=== PATIENT | female | born 1995 | race Caucasian/White ===

== ENCOUNTER 2018-09-04 03:27 | Emergency (ER) | payer BC ==
[2018-09-04 03:35] VITALS: BMI 27.4
[2018-09-04] MEDS ORDERED: PROZAC20 MG PO (03:36)
[2018-09-04] MEDS ORDERED: VISTARIL25 MG PO (03:37)
[2018-09-04 04:22] LABS: APPEARANCE HAZY (CLEAR); BASOPHILS 0.6 % (0-2); BILIRUBIN NEGATIVE (NEGATIVE); COLOR YELLOW (YELLOW); EOSINOPHILS 4.1 % (0-7); GLUCOSE NEGATIVE (NEGATIVE); HCG SERUM NEGATIVE (NEGATIVE); HEMATOCRIT 39.9 % (36.0-48.0); HEMOGLOBIN 13.4 g/dL (12-16); IMMATURE GRANULOCYTES 0.3 % (0-5); KETONE NEGATIVE (NEGATIVE); LYMPHOCYTES 53.6 % (15-50); MCH 30.1 pg (26.0-34.0); MCHC 33.6 g/dL (31.0-37.0); MCV 89.7 fL (80.0-100.0); MEAN PLATELET VOLUME 10.7 fL (7.4-10.4); NEUTROPHILS 34.4 % (40-80); NITRITE NEGATIVE (NEGATIVE); PLATELET COUNT 287 10x3/uL (130-400); PROTEIN NEGATIVE (NEGATIVE); RBC 4.45 10x6/uL (4.00-5.40); RDW 12.4 % (11.5-14.5); UROBILINOGEN NORMAL (NORMAL); WBC 9.4 10x3/uL (4.8-10.8)
[2018-09-04 04:23] LABS: ALKALINE PHOSPHATASE 59 U/L (46-116); ALT (SGPT) 27 U/L (10-68); BILIRUBIN - TOTAL 0.24 mg/dL (0.2-1.3); CALC OSMOLALITY 285 mosm/kg (275-300); CALCIUM 9.2 mg/dL (8.5-10.1); CARBON DIOXIDE 25.2 mmol/L (21.0-32.0); CHLORIDE - SERUM 106 mmol/L (98-107); CREATININE - SERUM 0.8 mg/dL (0.6-1.3); GLUCOSE 103 mg/dL (74-106); POTASSIUM - SERUM 3.9 mmol/L (3.5-5.1); PROTEIN - SERUM 7.5 g/dL (6.4-8.2); SODIUM 143 mmol/L (136-145); UREA NITROGEN 16 mg/dL (7-18); eGFR NON AFRICAN AMERICAN > 90 mL/min (90-120)
[2018-09-04 04:25] LABS: BACTERIA MODERATE /hpf (NONE SEEN); EPITHELIAL CELLS 0-5 /hpf (0-5); RED CELLS - URINE 0-5 /hpf (0-5); WHITE CELLS - URINE 0-5 /hpf (0-5)
[2018-09-04] MEDS ORDERED: TORADOL10 MG PO (06:26)
[2018-09-04] MEDS ORDERED: FLOMAX0.4 MG PO (06:26)
[2018-09-04 06:42] VITALS: BP 102/62
== END 2018-09-04 06:40 | disposition home or self-care (01) ==
LOC: D.ER 03:27
PROVIDERS: Family Medicine
DX: N20.0 Calculus of kidney (principal)